=== PATIENT | male | born 1950 | race Caucasian/White ===

== ENCOUNTER → 2017-07-21 | Outpatient (CLI) | payer MEDICARE, OTHER | END | disposition home or self-care (01) | LOC: GMAB 10:37 | PROVIDERS: ATTEND Family Medicine | DX: Z12.5 Encounter for screening for malignant neoplasm of prostate (principal); I10 Essential (primary) hypertension | CPT/HCPCS: 84443; G0103 ==

== ENCOUNTER 2018-01-07 11:47 | Emergency (ER) | payer MEDICARE, OTHER ==
--- NOTE | 2018-01-07 11:58 | ED.PDOC ---
History of Present Illness - General Chief Complaint: General Stated Complaint: Weakness, nausea Time Seen by Provider: 01/07/18 11:51 Source: patient, EMS notes reviewed Additional Information: 67 YEAR OLD BROUGHT VIA AMBULANCE FOR EVALUATION OF NAUSEA VOMITING DIARRHEA JUST PRIOR TO ARRIVAL NOW FEELS BETTER AFTER RECEIVING ZOFRAN IV IN THE AMBULANCE IT STARTED AT [facility] THIS MORNING HE FELT DIZZY AND SWEATY WENT HOME DROVE BY HIMSELF WHEN HE STARTED FEELING WORSE WITH NAUSEA VOMITING DIARRHEA TINGLING IN THE ARMS DENIES CHEST PAIN NO SHORTNESS OF BREATH NO ARM NECK OR JAW PAIN HE HAS HAD CHOLECYSTECTOMY NAD TAKE MEDICATION FOR HYPERTENSION - History of Present Illness Timing/Duration: 1 hour Severity: moderate Improving Factors: nothing Worsening Factors: nothing Associated Symptoms: nausea/vomiting, weakness Allergies/Adverse Reactions: Allergies NO KNOWN ALLERGY Allergy (Unverified 01/07/18 12:01) Home Medications: Ambulatory Orders Avapro 02/20/14 Promethazine Tab [Phenergan Tablet] 25 mg PO .Q4H PRN 7 Days #20 tab 01/07/18 Review of Systems - Review of Systems Constitutional: States: no symptoms reported EENTM: States: no symptoms reported Respiratory: States: no symptoms reported Cardiology: States: no symptoms reported Gastrointestinal/Abdominal: States: see HPI Genitourinary: States: no symptoms reported Musculoskeletal: States: no symptoms reported Skin: States: no symptoms reported Neurological: States: no symptoms reported Endocrine: States: no symptoms reported Hematologic/Lymphatic: States: no symptoms reported Past Medical History (General) - Patient Medical History Hx Congestive Heart Failure: No Hx Hypertension: Yes - Vaccination History Hx Influenza Vaccination: Yes - Social History Hx Tobacco Use: No Hx Alcohol Use: No - Female History Patient : No Family Medical History - Family History Mother Family History: Unknown Father Living Status: Hx Family Hypertension: Yes Hx Cardiac Disease: Yes Physical Exam - Physical Exam General Appearance: Alert, Anxious Eye Exam: bilateral normal Ears, Nose, Throat: hearing grossly normal, normal ENT inspection, normal pharynx, abnormal TM (R) Neck: non-tender, full range of motion, supple Respiratory: chest non-tender, lungs clear, normal breath sounds, no respiratory distress, no accessory muscle use Cardiovascular/Chest: normal peripheral pulses, regular rate, rhythm, no edema, no gallop, no JVD Gastrointestinal/Abdominal: normal bowel sounds, non tender, soft, no organomegaly, no pulsatile mass Back Exam: normal inspection, no CVA tenderness, no vertebral tenderness Extremity: normal range of motion, non-tender, normal inspection, no pedal edema 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 Copy, Patient Portal Self Enrollment Diet: full liquid diet Activity: increase activity as tolerated Referrals: Dirk Hutchinson MD [Primary Care Provider] - 1-2 Weeks Home Medications: Ambulatory Orders Avapro 02/20/14 Promethazine Tab [Phenergan Tablet] 25 mg PO .Q4H PRN 7 Days #20 tab 01/07/18
[2018-01-07] MEDS ORDERED: SODIUM CHLORIDE 0.9% 1000ML 1,000 ML IVS ONE (12:01)
[2018-01-07 12:02] VITALS: O2SAT 99
[2018-01-07] MEDS ORDERED: PROMETHAZINE HCL INJ 25 MG/ML VIAL ONE (12:31)
[2018-01-07] MEDS ORDERED: PROMETHAZINE HCL INJ 25 MG/ML VIAL IM ONE (12:33)
[2018-01-07 14:56] VITALS: BP 142/80; TEMP 97
== END 2018-01-07 14:51 | disposition home or self-care (01) ==
LOC: ER 11:47
DX: K52.9 Noninfective gastroenteritis and colitis, unspecified (principal); I10 Essential (primary) hypertension
CPT/HCPCS: 36415; 80053; 81001; 82550; 82553; 83735; 84484; 93005; J2550; J7030

== ENCOUNTER → 2018-08-04 | Outpatient (CLI) | payer MEDICARE, OTHER | LOC: GMAE 10:35 | PROVIDERS: ATTEND Family Medicine | DX: I10 Essential (primary) hypertension (principal); Z12.5 Encounter for screening for malignant neoplasm of prostate | CPT/HCPCS: 84443; G0103 ==

== ENCOUNTER 2019-07-24 15:18 | Observation (INO) | payer MEDICARE, OTHER ==
--- NOTE | 2019-07-24 15:58 | CT ---
EXAM: CT Head Without Intravenous Contrast CLINICAL HISTORY: The patient is 68 years old and is Male; slurred speech 15 min TECHNIQUE: Axial computed tomography images of the head/brain without intravenous contrast. Sagittal and coronal reformatted images were created and reviewed. This CT exam was performed using one or more of the following dose reduction techniques: automated exposure control, adjustment of the mA and/or kV according to patient size, and/or use of iterative reconstruction technique. COMPARISON: No relevant prior studies available. FINDINGS: BRAIN: Diffuse cerebral atrophy. Romero-white matter differentiation is well-maintained. No obvious signs of acute infarct. No intracranial hemorrhage. VENTRICLES: No hydrocephalus. BONES/JOINTS: Unremarkable. No acute fracture. SOFT TISSUES: Unremarkable. SINUSES: Unremarkable as visualized. No acute sinusitis. MASTOID AIR CELLS: Unremarkable as visualized. No mastoid effusion. IMPRESSION: 1. No acute intracranial findings visualized. 2. Diffuse cerebral atrophy. Electronically signed by: Connie Serrano MD 07/24/2019 3:57 PM [facility]
--- NOTE | 2019-07-24 15:59 | RAD ---
EXAM: XR Chest, 1 View CLINICAL HISTORY: The patient is 68 years old and is Male; slurred speech TECHNIQUE: Frontal view of the chest. COMPARISON: Chest radiograph from 02/20/2014 FINDINGS: LUNGS: Unremarkable. No consolidation. PLEURAL SPACE: Unremarkable. No pneumothorax. HEART: No significant enlargement of the cardiac silhouette. MEDIASTINUM: Unremarkable. BONES/JOINTS: No acute osseous findings. IMPRESSION: No acute findings visualized in the chest. 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
[2019-07-24] MEDS ORDERED: ASPIRIN TABLET 325 MG TAB PO ONE (16:03)
--- NOTE | 2019-07-24 17:10 | ED.PDOC ---
History of Present Illness - General Chief Complaint: Neuro Symptoms/Deficits Stated Complaint: Difficulty forming thoughts/speech, bilateral leg Time Seen by Provider: 07/24/19 15:21 Source: patient, family Exam Limitations: no limitations - History of Present Illness Initial Comments: the patient is a 68-year-old male who is sitting with his on the back porch at the table when he suddenly had difficulty with finding words and forming words. No syncope. He moved all extremities well. He was able to ambulate. This started approximately 15 minutes prior to his arrival here. Upon arrival here he was speaking fairly well but was still having mild difficulty with finding words and a very mild difficulty with forming words. No difficulty with moving his extremities. No sensory changes. No neglect. He reports he feels a little bit dizzy and a little bit tired. No nystagmus. Gag reflex is strong. Rapid alternating movements are preserved. Heel to banerjee test is within normal limits. Finger to nose testing is within normal limits. HINTS exam is within normal limits. no pronator drift. He does have some mild dizziness when he closes his eyes. He does wear hearing aids. Timing/Duration: other - 30 minutes Severity: moderate Improving Factors: nothing Worsening Factors: nothing Associated Symptoms: denies symptoms Allergies/Adverse Reactions: Allergies NO KNOWN ALLERGY Allergy (Verified 07/24/19 15:41) Home Medications: Ambulatory Orders Aspirin [Aspirin Low Strength] 81 mg PO DAILY 07/24/19 Cetirizine HCl [Zyrtec Allergy] 10 mg PO DAILY 07/24/19 Irbesartan 75 mg PO DAILY 07/24/19 Review of Systems - Review of Systems Constitutional: States: malaise EENTM: States: no symptoms reported Respiratory: States: no symptoms reported Cardiology: States: no symptoms reported Gastrointestinal/Abdominal: States: no symptoms reported Genitourinary: States: no symptoms reported Musculoskeletal: States: no symptoms reported Skin: States: no symptoms reported Neurological: States: see HPI Endocrine: States: no symptoms reported Hematologic/Lymphatic: States: no symptoms reported All other Systems: No Change from Baseline Past Medical History (General) - Patient Medical History Hx Stroke: No Hx of COPD: No Hx Cardiac Disorders: No Hx Congestive Heart Failure: No Hx Hypertension: Yes Hx Diabetes: No Hx Gastroesophageal Reflux: Yes Surgical History: cholecystectomy - Vaccination History Hx Tetanus, Diphtheria Vaccination: No Hx Influenza Vaccination: Yes Hx Pneumococcal Vaccination: Yes Immunizations Up to Date: Yes - Social History Hx Tobacco Use: No Hx Chewing Tobacco Use: No Hx Alcohol Use: Yes - rare/social Hx Substance Use: No Hx Substance Use Treatment: No Hx Depression: No - Female History Patient is a Female of Child Bearing Age (10 -59 yrs old): No Patient : No Family Medical History - Family History Father Living Status: Hx Family Hypertension: Yes Hx Cardiac Disease: Yes Mother Family History: Unknown Physical Exam - Physical Exam General Appearance: Alert, Anxious Eye Exam: bilateral normal Ears, Nose, Throat: hearing grossly normal - with hearing aids in place, normal pharynx Neck: full range of motion, supple Respiratory: lungs clear, normal breath sounds, no respiratory distress, no accessory muscle use Cardiovascular/Chest: normal peripheral pulses, regular rate, rhythm, no edema Peripheral Pulses: radial,right: 2+, radial,left: 2+, dorsalis pedis,right: 2+, dorsalis pedis,left: 2+ Gastrointestinal/Abdominal: non tender, soft Rectal Exam: deferred Back Exam: no CVA tenderness, no vertebral tenderness Extremity: normal range of motion, non-tender, normal inspection, no pedal edema, normal capillary refill Neurologic: shape hand II-XII nml as tested - chronic hearing loss, no motor/sensory deficits, alert, normal mood/affect, oriented x 3, aphasia - very mild initially but resolved within one hour Skin Exam: normal color Comments: Vital Signs - 24 hr 07/24/19 07/24/19 07/24/19 15:22 15:31 16:00 Temperature 96.3 F L Pulse Rate [R 81 81 76 finger] Respiratory 18 18 20 Rate Blood Pressure 169/99 149/94 [L arm] O2 Sat by Pulse 98 98 Oximetry 07/24/19 17:00 Temperature Pulse Rate [R 85 finger] Respiratory 20 Rate Blood Pressure 183/100 [L arm] O2 Sat by Pulse 98 Oximetry Progress - Progress Progress: 07/24/19 17:12 the patient is a 68-year-old male presenting to emergency room secondary to symptoms of a stroke. Symptoms did resolve within an hour and/or dust being currently classified as a TIA. He still has a vague sensation of mild fatigue and mild dizziness. No focal neurological deficits are remaining. He did receive a full dose aspirin here. He is remaining on telemetry monitoring here. Blood pressures are somewhat labile, but do mainly rise when he gets anxious. The patient will be placed in house overnight for observation. Additional testing for risk factors for stroke will need to be done over the coming weeks. Admit for continued monitoring. Initial stroke symptoms started at 3:05 PM and had resolved by 4 PM. - Results/Orders Results/Orders: Laboratory Tests 07/24/19 07/24/19 07/24/19 15:21 15:22 15:22 WBC 6.3 RBC 5.52 Hgb 16.6 Hct 48.9 MCV 88.6 MCH 30.1 MCHC 34.0 RDW 13.7 Plt Count 261 MPV 7.7 Absolute Neuts (auto) 3.50 Absolute Lymphs (auto) 1.90 Absolute Monos (auto) 0.70 Absolute Eos (auto) 0.20 Absolute Basos (auto) 0.10 Neutrophils % 56.4 Lymphocytes % 29.6 Monocytes % 10.7 H Eosinophils % 2.5 Basophils % 0.8 PT 9.9 INR 1.00 PTT (SP) 24.3 Sodium 135 Potassium 3.8 Chloride 98 L Carbon Dioxide 24 Anion Gap 16.8 BUN 24 H Creatinine 1.10 BUN/Creatinine Ratio 21.8 H Random Glucose 95 Serum Osmolality 273.9 L Calcium 9.3 Total Bilirubin 1.1 H AST 22 ALT 21 Alkaline Phosphatase 55 Creatine Kinase 82 CK-MB (CK-2) 1.5 CK-MB (CK-2) % Not Reportable Troponin I < 0.02 B-Natriuretic Peptide < 5.0 Serum Total Protein 7.7 Albumin 4.2 Globulin 3.5 Albumin/Globulin Ratio 1.2 EKG shows normal sinus rhythm at 77 beats a minute. Normal axis. Normal R-wave progression. No definitive ST segment or T-wave changes indicative of acute ischemia. Chest x-ray shows no acute pathology. Head CT shows no acute pathology. See report for details. - EKG/XRAY/CT CT Ordered: Yes Departure - Departure Clinical Impression: TIA (transient ischemic attack) Disposition: Admit Patient Departure Forms: ED Discharge - Pt. Copy, Patient Portal Self Enrollment Referrals: Dirk Hutchinson MD [Primary Care Provider] - 1-2 Weeks Home Medications: Ambulatory Orders Aspirin [Aspirin Low Strength] 81 mg PO DAILY 07/24/19 Cetirizine HCl [Zyrtec Allergy] 10 mg PO DAILY 07/24/19 Irbesartan 75 mg PO DAILY 07/24/19 Decision To Admit - Decistion To Admit Decision to Admit Reason: Medical Nature Decision to Admit Date: 07/24/19 Decision to Admit Time: 17:14
[2019-07-24] MEDS ORDERED: SODIUM CHLORIDE 0.9% (FLUSH) 10 ML SYG IV PRN (17:38)
[2019-07-24] MEDS ORDERED: ONDANSETRON INJ 4 MG/2 ML VIAL IV PRN (17:38)
[2019-07-24] MEDS ORDERED: IV SET AND CAP CHANGE INJ INJ SCH (18:00)
[2019-07-24] MEDS ORDERED: ENOXAPARIN SODIUM 40 MG/0.4 ML SYG SUBCU SCH (21:00)
[2019-07-24] MEDS: SODIUM CHLORIDE 0.9% (FLUSH) 10 ML SYG IV SCH (21:51)
[2019-07-25] MEDS ORDERED: CETIRIZINE HCL 10 MG TAB PO ONE (08:23)
[2019-07-25] MEDS ORDERED: ASPIRIN TABLET 325 MG TAB PO SCH (09:00)
[2019-07-25] MEDS ORDERED: ASPIRIN (CHEWABLE) 81 MG TAB PO SCH (09:00)
[2019-07-25] MEDS ORDERED: CETIRIZINE HCL 10 MG TAB PO SCH (09:00)
[2019-07-25] MEDS: SODIUM CHLORIDE 0.9% (FLUSH) 10 ML SYG IV SCH (09:24)
[2019-07-25] MEDS ORDERED: CLOPIDOGREL 75 MG TAB PO ONE (11:08)
--- NOTE | 2019-07-25 12:09 | MRI ---
EXAM DESCRIPTION: Brain w/oContrast CLINICAL HISTORY: 68 years Male, TIA COMPARISON: CT head dated 07/24/2019. TECHNIQUE: Multiplanar multiecho imaging of the brain was performed without the administration of intravenous contrast. FINDINGS: Mild periventricular white matter ischemia. No acute major vascular territorial infarct or acute intraparenchymal hemorrhage. No intra-axial or extra-axial fluid collections are identified. The cisterns and ventricles appear normal in caliber. The sella and suprasellar regions demonstrate no gross abnormality. The structures of the posterior fossa are intact. The visualized paranasal sinuses and mastoid air cells appear normal. The globes are intact bilaterally. Review of the bones demonstrates no gross abnormality. IMPRESSION: No acute intracranial process. Electronically signed by: Fracisco Kwong MD 07/25/2019 12:07 PM [facility]
[2019-07-25 12:34] VITALS: BP 145/75; TEMP 98.6; O2SAT 99
--- NOTE | 2019-07-25 13:26 | US ---
EXAM DESCRIPTION: Carotid Duplex CLINICAL HISTORY: tia COMPARISON: None Available. TECHNIQUE: Carotid Doppler ultrasound FINDINGS: Carotid Doppler ultrasound is normal. There is no plaque formation. All duplex waveforms and flow velocities are within normal limits on both sides. Both vertebrals are patent with antegrade flow. 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
--- NOTE | 2019-07-25 17:42 | SSS ---
SUPERVISING PHYSICIAN: Varun Segura MD CHIEF COMPLAINT: Difficulty forming thoughts and speech and bilateral lower extremity weakness. HISTORY OF PRESENT ILLNESS: Mr. Quezada is a 68 year-old male patient who presented to the Emergency Room [facility] via private vehicle. He noted he had been sitting on the back porch with his at the table when he had difficulty finding words and forming sentences. He denied any syncope, noted symptoms started approximately 15 minutes prior to arrival to the Emergency Room. When he did arrive to the Emergency Room, he was speaking fairly clear, was still having some difficulty with finding words. He was showing no difficulty moving his extremities. No sensory changes or neglect. He also notes he felt a little dizzy at times but there was no obvious nystagmus on the assessment. His laboratory studies showed he had a normal white count but on discharge white count was 4,800. Platelet count 36 showing to be within normal limits. Electrolytes on admission showed normal as well as at discharge with a creatinine of 1.15 on discharge. Initial blood sugar on admission was 95, discharge at 93. Calcium normal. Bilirubin slightly elevated at 1.2 on discharge. Other liver functions were within normal limits. Troponin and BNP were normal. Cholesterol fasting was 305, LDL cholesterol of 200, triglyceride 277. CT of his head without contrast showed no acute intracranial findings, just noted a few cerebral atrophy. Chest x-ray showed no acute findings per radiology interpretation. Given his symptomatology and concerns for possible TIA, the patient was placed in observation for further neurological and clinical monitoring with every 3 to 4 neuro checks. Pending workup in the morning included MRI of the brain without contrast, Doppler studies of the carotids and echocardiogram. He was placed in observation in stable condition. At time of admission, the patient was without any neurological findings. PAST MEDICAL HISTORY: 1. Gastroesophageal reflux disease. 2. Hyperlipidemia. 3. Benign prostatic hypertrophy. 4. Mild lumbar syndrome. 5. Pulmonary embolism postoperative after his cholecystectomy. PAST SURGICAL HISTORY: 1. Cholecystectomy. 2. Hernia repair. 3. Hydrocele repair. CURRENT MEDICATIONS: 1. Aspirin 81 mg daily. 2. Irbesartan 75 mg at bedtime. 3. Cetirizine 10 mg daily. ALLERGIES: No known drug allergies. FAMILY HISTORY: Father at age 78. He had heart problems with a bypass and from complications from congestive heart failure. Mother at 73 years of age from pelvic fracture complications. Three brothers with no reported health problems. 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 He has never smoked tobacco, uses alcohol in the form of beer on an occasional weekend. He denies any illicit drug use. REVIEW OF SYSTEMS: CONSTITUTIONAL: General malaise, denies fever, chills, unintentional weight gain or loss. HEENT: Negative for sore throats, earaches, nasal congestion, vision changes. RESPIRATORY: Negative for shortness of breath, wheezing or coughing. CARDIOVASCULAR: Negative for chest pain, palpitations or syncopal episodes or peripheral edema. GASTROINTESTINAL: Negative for nausea, vomiting, diarrhea, constipation or abdominal pain. GENITOURINARY: Negative for dysuria, hematuria, polyuria. MUSCULOSKELETAL: Denies arthralgias or joint swelling. SKIN: No reported lesions, moles or rashes or unexplained changes. NEUROLOGIC: As noted on history of present illness. HEMATOLOGIC: Denies easy bleeding, bruising, transfusion reactions. PHYSICAL EXAMINATION: VITAL SIGNS: Temperature 96.3, pulse 81, blood pressure 159/98, respirations 18, oxygen saturation 98% on room air. On morning of discharge, temperature was 98.6, pulse 66, blood pressure 145/75, respirations 16, oxygen saturation 99% on room air. Admission weight 85 kg. GENERAL: The patient is resting comfortably and appears to be in no acute distress, He was alert and showing no obvious neurological deficits. He was able converse without hesitation in complete sentences. HEENT: Oropharynx is pink and moist without any lesions. He was wearing bilateral hearing aids. Tympanic membranes were not visualized. NECK: Supple, non-tender, full range of motion. No jugular venous distention. CHEST: Lungs clear to auscultation bilaterally without rhonchi, rales, or wheezes. HEART: Regular rate and rhythm without appreciable murmurs, rubs, or gallops ABDOMEN: Soft, non-tender, positive bowel sounds. EXTREMITIES: No cyanosis, clubbing, or edema. Range of motion appears to be normal. He is moving all extremities ad kelsey. BACK: No CVA or vertebral tenderness. NEUROLOGIC: Cranial nerves II through XII grossly intact. He does have chronic hearing loss and wears hearing aids. There is no obvious motor or sensory deficits. Facial features were symmetrical. Extraocular movements within normal limits. There was no notable nystagmus. He was alert and oriented x3. No obvious aphasia, no pronator drift. [id number] testing within normal limits. RECTAL: Deferred. LABORATORY: White count on admission 6,300, discharge was 4.800. Hemoglobin 15.7, hematocrit 45.9 on discharge. Normal RBC indices. Platelet count 224,000, differential showed to be without a left shift. Coagulation studies showed normal PT/PTT. Chemistries showed normal electrolytes on discharge with BUN 21, creatinine 1.15. Calcium 9.0, magnesium 2.1, total bilirubin only slightly elevated at 1.2. Troponin and BNP all within normal limits. Lipid panel showed triglyceride at 277, cholesterol 305. LDL cholesterol 200, HDL cholesterol of 33. RADIOLOGY: CT of head and chest x-ray without any acute findings per radiology interpretation on discharge. Prior to discharge he had further to include MRI of the brain which was without any acute findings per radiology interpretation as well as carotid Doppler studies showed to be normal. Echocardiogram per Dr. Simmons showed left ventricular ejection fraction estimated to be 65 to 70% with a grade I diastolic dysfunction. Please see those reports for details. ADMITTING DIAGNOSIS: 1. Transient ischemic attack with symptoms to include aphasia. 2. Hyperlipidemia. 3. Gastroesophageal reflux disease. 4. Benign prostatic hypertrophy. DISCHARGE DIAGNOSES: 1. Possible transient ischemic attack with primary symptoms being aphasia with no recurrence prior to discharge with patient previous on aspirin. 2. Severe hyperlipidemia intolerant to oral statins. 3. Benign prostatic hypertrophy. 4. Gastroesophageal reflux disease. HOSPITAL COURSE: Mr. Quezada was placed in observation for further monitoring, both cardiac and neurological for possible TIA. He had no recurrence of symptoms overnight. His vital signs remained stable and his workup was completed with an MRI, carotid studies, echocardiogram, EKG, chest x- ray, CT, all without any acute findings on all testing. He had shown no clinical signs of recurrence of a TIA and was felt stable to continue with outpatient management. He was given a loaded dose of Plavix and started on daily Plavix along with a baby aspirin. I did discuss with him the need for statin, however, after discussing with Dr. Mishra and the patient, the patient has tried multiple statins and has been intolerant to all oral medications. He did have some success with injections but was unable to afford the medication and did not continue treatment. We did discuss his diet and he needed to remain on a low cholesterol, low-fat diet and increase his exercise and management of his blood pressure. He was found to be stable, therefore, he can be discharged to continue outpatient management. PLAN: Mr. Quezada was discharged on 07-25-2019 with instructions to followup with Dr. Mishra as scheduled on 08-01-2019 at 9:15 AM. He was to resume all medications prior to hospitalization as instructed. He is to start taking Plavix the day after discharge and continue as directed. He was told to return to the Emergency Department should he have any concerns or worsening symptoms. Diet was low cholesterol, low-fat. Activities: Increase exercise as tolerated. Discharge medications: 1. Plavix 75 mg daily, #21 for antiplatelet therapy, to continue at discretion of Dr. Mishra along with followup with Neurology. 2. Continue with aspirin 81 mg daily and blood pressure control with Irbesartan 75 mg daily. Condition on discharge was stable and improved. Disposition: The patient is discharged home. #[id number] [facility]
[2019-07-25] MEDS ORDERED: IRBESARTAN 75 MG PO SCH (21:00)
== END 2019-07-25 15:00 | disposition home or self-care (01) ==
LOC: ER 15:18 → MS 17:22
PROVIDERS: ADMIT Nurse Practitioner Acute Care; ATTEND Nurse Practitioner Family
DX: R47.01 Aphasia (principal); E78.5 Hyperlipidemia, unspecified; N40.0 Benign prostatic hyperplasia without lower urinary tract symptoms; K21.9 Gastro-esophageal reflux disease without esophagitis; I11.9 Hypertensive heart disease without heart failure; G31.9 Degenerative disease of nervous system, unspecified; I70.0 Atherosclerosis of aorta; I34.0 Nonrheumatic mitral (valve) insufficiency; I36.1 Nonrheumatic tricuspid (valve) insufficiency; I37.1 Nonrheumatic pulmonary valve insufficiency; Z79.82 Long term (current) use of aspirin; Z79.899 Other long term (current) drug therapy; Z90.49 Acquired absence of other specified parts of digestive tract; Z82.49 Family history of ischemic heart disease and other diseases of the circulatory system
CPT/HCPCS: 96372; J1650; 82553; 80053 ×2; 80061; 36415 ×2; 85025 ×2; 82550; 83735; 85730; 85610; 84484; 83880; 71045; 70450; 93880; 94760 ×3; 99285; 93306; 70551; 93005; G0378

== ENCOUNTER → 2019-08-01 | Outpatient (CLI) | payer MEDICARE, OTHER | LOC: GMAE 14:41 | PROVIDERS: ATTEND Family Medicine | DX: I10 Essential (primary) hypertension (principal); Z12.5 Encounter for screening for malignant neoplasm of prostate | CPT/HCPCS: 84443; G0103 ==

== ENCOUNTER → 2019-08-12 | Outpatient (CLI) | payer MEDICARE, OTHER ==
--- NOTE | 2019-08-12 10:58 | CT ---
EXAM DESCRIPTION: Abdoment/Pelvis w/o Contrast CLINICAL HISTORY: 68 years Male, VENTRAL HERNIA WITHOUT OBSTRUCTION OR GANGRENE COMPARISON: CT abdomen and pelvis dated 02/20/2012. TECHNIQUE: Contiguous 3 mm axial images were obtained from the lung bases to the level of the proximal femora without the administration of intravenous or oral contrast. Sagittal and coronal reconstructions were reviewed. FINDINGS: Limited evaluation of the solid organs due to the lack of intravenous contrast. THORAX: The imaged lower thorax demonstrates no gross abnormality. LIVER: The liver demonstrates normal size and density with no intrahepatic biliary ductal dilatation. GALLBLADDER: Surgically absent. PANCREAS: Appears normal with no cystic or solid lesions. SPLEEN: Normal ADRENAL GLANDS: Normal with no nodules or masses. KIDNEYS: Punctate 2 mm calculus is noted in the inferior pole of the right kidney. No hydronephrosis. The visualized ureters appear grossly unremarkable. STOMACH: Mild reflux esophagitis. The stomach is not well-distended limiting detailed evaluation. SMALL BOWEL: The small bowel loops demonstrate variable degrees of distention with no abnormal dilatation or other signs to suggest bowel obstruction. LARGE BOWEL: Majority of the colon is not well-distended limiting detailed evaluation. Few diverticuli are noted throughout the visualized colon. The appendix is well-visualized and appears normal No evidence of free intraperitoneal air or fluid. RETROPERITONEUM: The abdominal aorta is nonaneurysmal with moderate atherosclerosis. The inferior vena cava is normal in size and caliber. No abnormally enlarged retroperitoneal lymph nodes are identified. URINARY BLADDER: Not well distended limiting evaluation. The prostate gland and seminal vesicles appear normal. ADDITIONAL FINDINGS: 2.7 x 2.2 cm midline umbilical defect is noted with herniation of a loop of small bowel. However no bowel obstruction or strangulation. BONES: Mild degenerative changes are identified in the visualized bones. Mild superior endplate wedging of T12 vertebral body. IMPRESSION: 2.7 x 2.2 cm midline umbilical defect is noted with herniation of a loop of small bowel. However no bowel obstruction or strangulation. Punctate 2 mm nonobstructive calculus is noted in the inferior pole of the right kidney. This exam was performed according to our departmental dose-optimization program, which includes automated exposure control, adjustment of the mA and/or kV according to patient size and/or use of iterative reconstruction technique. Electronically signed by: Cordelia Knight MD 08/12/2019 10:56 AM [employer]
== END ==
LOC: CT 08:01
PROVIDERS: ATTEND Family Medicine
DX: K43.9 Ventral hernia without obstruction or gangrene (principal); N20.0 Calculus of kidney

== ENCOUNTER → 2020-08-13 | Outpatient (CLI) | payer MEDICARE, OTHER | LOC: GMAE 10:34 | PROVIDERS: ATTEND Family Medicine | DX: Z12.5 Encounter for screening for malignant neoplasm of prostate (principal); I10 Essential (primary) hypertension; E78.2 Mixed hyperlipidemia | CPT/HCPCS: 84443; G0103 ==